=== PATIENT | male | born 1945 | race Asian ===

== ENCOUNTER → 2025-08-02 06:53 | Outpatient (REF) | payer MEDICARE, SELFPAY | LOC: HWRCS 06:53 | PROVIDERS: ATTENDING PHYSICIAN Internal Medicine Cardiovascular Disease; FAMILY PHYSICIAN Internal Medicine | DX: R07.9 Chest pain, unspecified (principal); I25.10 Atherosclerotic heart disease of native coronary artery without angina pectoris; I10 Essential (primary) hypertension; E78.5 Hyperlipidemia, unspecified | CPT/HCPCS: 78452; 93017; A9500; J2785 ==